=== PATIENT | male | born 1960 | race Caucasian/White ===

== ENCOUNTER → 2017-08-16 | Outpatient (CLI) | payer BC ==
[2017-08-16 10:42] LABS: BASO # 0.1 10*3/uL (0.0-0.1); BASO % 0.9 % (0.0-1.0); EOS # 0.3 10*3/uL (0.0-0.4); EOS % 3.8 % (1.0-4.0); HEMATOCRIT 47.4 % (42.0-52.0); HEMOGLOBIN 15.4 g/dl (14.0-18.0); LYMPH # 2.9 10*3/uL (1.3-4.4); LYMPH % 34.8 % (27.0-41.0); MEAN CELL VOLUME 89.9 fl (80.0-94.0); MEAN CORPUSCULAR HGB 29.2 pg (27.0-31.0); MEAN CORPUSCULAR HGB CONC 32.5 g/dl (33.0-37.0); MEAN PLATELET VOLUME 8.6 fl (9.6-12.3); MONO # 0.7 10*3/uL (0.1-1.0); MONO % 8.9 % (3.0-9.0); NEUT # 4.2 10*3/uL (2.3-7.9); NEUT % 51.1 % (47.0-73.0); PLATELET COUNT AUTOMATED 281 10*3/uL (130-400); RED BLOOD COUNT 5.27 10*6/uL (4.50-5.90); RED CELL DISTRI WIDTH 13.6 % (0-14.5); WHITE BLOOD COUNT 8.2 10*3/uL (4.8-10.8)
[2017-08-16 11:12] LABS: ALBUMIN 3.8 gm/dl (3.1-4.5); ALKALINE PHOSPHATASE 70 U/L (45-117); BUN 19 mg/dl (7-24); CHLORIDE 106 mmol/L (98-107); CREATININE 1.05 mg/dL (0.70-1.30); POTASSIUM 4.2 mmol/L (3.5-5.1); SGOT/AST 18 IU/L (3-35); SGPT/ALT 32 U/L (12-78); SODIUM 141 mmol/L (136-145); TOTAL PROTEIN 7.2 gm/dL (6.4-8.2)
== END | disposition home or self-care (01) ==
LOC: LAB 09:53 → US 10:00
PROVIDERS: Urology
DX: Z13.89 Encounter for screening for other disorder (principal); D40.0 Neoplasm of uncertain behavior of prostate; N28.89 Other specified disorders of kidney and ureter

== ENCOUNTER → 2018-08-14 | Outpatient (CLI) | payer BC | END | disposition home or self-care (01) | LOC: LAB 18:06 | DX: D40.0 Neoplasm of uncertain behavior of prostate (principal) ==

== ENCOUNTER 2020-11-23 08:38 | Emergency (ER) | payer OTHER ==
[~2020-11-23] VITALS: Wt 86.2 kg
[2020-11-23] MEDS ORDERED: CEPHALEXIN500 M1 PO (10:44)
== END 2020-11-23 10:44 | disposition home or self-care (01) ==
LOC: ED 08:38
DX: S61.210A Laceration without foreign body of right index finger without damage to nail, initial encounter (principal); W26.8XXA Contact with other sharp object(s), not elsewhere classified, initial encounter; Y93.89 Activity, other specified; Y92.89 Other specified places as the place of occurrence of the external cause; Y99.8 Other external cause status

== ENCOUNTER → 2020-12-02 | Outpatient (CLI) | payer OTHER ==
[~2020-12-02] MED LIST: CEPHALEXIN500 M1 PO
== END ==
LOC: WOUNDCARE 00:32
PROVIDERS: ATTEND Nurse Practitioner Family
DX: S61.200A Unspecified open wound of right index finger without damage to nail, initial encounter (principal); Z72.89 Other problems related to lifestyle; W26.8XXA Contact with other sharp object(s), not elsewhere classified, initial encounter; Y93.89 Activity, other specified; Y92.89 Other specified places as the place of occurrence of the external cause; Y99.8 Other external cause status

== ENCOUNTER → 2020-12-08 | Outpatient (CLI) | payer OTHER | LOC: WOUNDCARE 01:58 | PROVIDERS: ATTEND Nurse Practitioner Family | DX: S61.200D Unspecified open wound of right index finger without damage to nail, subsequent encounter (principal); Z72.89 Other problems related to lifestyle; W26.8XXD Contact with other sharp object(s), not elsewhere classified, subsequent encounter ==

== ENCOUNTER 2022-07-23 20:28 | Emergency (ER) | payer BC ==
[~2022-07-23] VITALS: Ht 170.1 cm; Wt 86.2 kg
[2022-07-23] MEDS ORDERED: HYDROCODONE-AC1 EACH PO (21:46)
[2022-07-23] MEDS ORDERED: NAPROSYN500 MG PO (21:46)
== END 2022-07-23 21:48 | disposition home or self-care (01) ==
LOC: ED 20:28
DX: S46.911A Strain of unspecified muscle, fascia and tendon at shoulder and upper arm level, right arm, initial encounter (principal); Z98.890 Other specified postprocedural states; Z86.16 Personal history of COVID-19; X50.0XXA Overexertion from strenuous movement or load, initial encounter; Y93.89 Activity, other specified; Y92.89 Other specified places as the place of occurrence of the external cause; Y99.8 Other external cause status

== ENCOUNTER → 2024-11-18 | Outpatient (CLI) | payer BC ==
[~2024-11-18] MED LIST changes: +HYDROCODONE-AC1 EACH PO; +NAPROSYN500 MG PO
== END | disposition home or self-care (01) ==
LOC: RAD 15:15
PROVIDERS: ATTEND Chiropractor
DX: M47.23 Other spondylosis with radiculopathy, cervicothoracic region (principal)